=== PATIENT | female | born 1990 | race Caucasian/White ===

== ENCOUNTER 2021-07-12 10:54 | Emergency (ER) | payer MEDICARE ==
[~2021-07-12] VITALS: Ht 165.1 cm; Wt 60.0 kg
--- NOTE | 2021-07-12 11:26 | NUR ---
PT HERE WITH C/O CHEST PAIN THAT STARTED 1.5 HOURS AGO, STATES SHE FEELS PRESSURE ON LEFT SIDE OF CHEST AND BACK. 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
[2021-07-12 11:36] LABS: BASOPHILS % (AUTO) 1 % (0-1); EOSINOPHILS % (AUTO) 3 % (1-7); LYMPHOCYTES % (AUTO) 12 % (22-44); MEAN CORPUSCULAR HEMOGLOBIN 30.7 pg (27.0-34.8); MEAN CORPUSCULAR HGB CONC 32.9 g/dL (32.4-35.8); MEAN PLATELET VOLUME 8.1 fL (7.4-10.4); MONOCYTES % (AUTO) 13 % (2-9); NEUTROPHILS % (AUTO) 72 % (42-75); PLATELET COUNT 127 x10^3/uL (130-400); RED BLOOD COUNT 4.38 x10^6/uL (3.82-5.3); RED CELL DISTRIBUTION WIDTH 15.8 % (9.6-15.2)
[2021-07-12 11:45] LABS: ALANINE AMINOTRANSFERASE 34 U/L (12-78); ALBUMIN 3.7 g/dL (3.4-5.0); ANION GAP 6 mmol/L (5-15); CHLORIDE 108 mmol/L (98-107); CREATININE 0.97 mg/dL (0.55-1.02)
[2021-07-12 11:49] LABS: ALKALINE PHOSPHATASE 66 U/L (45-117); BILIRUBIN,TOTAL 0.4 mg/dL (0.2-1.0); TOTAL PROTEIN 8.3 g/dL (6.4-8.2); TROPONIN I < 0.015 ng/mL (0.000-0.045)
--- NOTE | 2021-07-12 11:59 | NUR ---
DR. Waters at bedside.
[2021-07-12] MEDS ORDERED: KETOROLAC 30 MG/1 ML ONE (12:23)
[2021-07-12] MEDS ORDERED: KETOROLAC 30 MG/1 ML IVPush ONE (12:30)
--- NOTE | 2021-07-12 12:34 | NUR ---
PORT ACCESSED WITHOUT DIFFICULTY. AWAITING CTA.
--- NOTE | 2021-07-12 12:43 | NUR ---
PT TRANSPORTED TO CT.
--- NOTE | 2021-07-12 12:45 | NUR ---
CT HAD TO BE POSTPONED- CODE NEURO CALLED AND THE OTHER CT ROOM COVID CONTAMINATED
[2021-07-12 13:40] VITALS: BP 111/80
[2021-07-12] MEDS ORDERED: OMNIPAQUE 350 MG/ML, 75ML BOTTLE ONE (13:45)
== END 2021-07-12 14:23 | disposition home or self-care (01) ==
LOC: ED 14:15
DX: R09.1 Pleurisy (principal); R07.89 Other chest pain; Z85.831 Personal history of malignant neoplasm of soft tissue
CPT/HCPCS: 36415; 71275; 80053; 84484; 85025; 93005; 96374; 99285; J1885; Q9967